=== PATIENT | female | born 1945 | race Caucasian/White ===

== ENCOUNTER 2016-05-31 07:30 | Inpatient (IN) | payer MEDICARE, OTHER ==
--- NOTE | 2016-06-28 03:55 | HP ---
HISTORY AND PHYSICAL: DATE OF ADMISSION/SURGERY: 07/05/16 DATE OF OFFICE VISIT: 06/25/16 ATTENDING SURGEON: Anam Diaz MD PROCEDURE: Right total knee arthroplasty. CHIEF COMPLAINT: Preop for right total knee arthroplasty. HISTORY OF PRESENT ILLNESS: Daisy Velez is a 70-year-old female who presents with a history of right knee pain. The patient states that the pain is now quite a bit worse and that medications are no longer working for her. The patient has failed conservative treatment and has elected for a right total knee arthroplasty. The benefits and possible risks were discussed with the patient and the consent was signed. PAST MEDICAL HISTORY: 1. Atrial fibrillation. 2. DVT/pulmonary embolism. 3. Hypertension. 4. Sleep apnea. 5. Obesity. 6. Hypothyroidism. 7. Asthma exertional. PAST SURGICAL HISTORY: 1. Knee replacement surgery of the left, complications of which were a pulmonary embolism. 2. Appendectomy. 3. Knee arthroscopy bilaterally. MEDICATIONS: 1. Eliquis 5 mg 1 by mouth twice a day. 2. Sotalol 80 mg 1 tab by mouth twice a day. 3. Potassium chloride ER 10 mEq 1 tab by mouth every day. 4. Losartan potassium/hydrochlorothiazide 100-25 mg 1 p.o. daily. 5. Levoxyl 175 mcg 1 tablet p.o. daily. 6. Calcium 500 plus D3 1 tablet daily. 7. Biotin OTC 10,000 mcg 1 tablet. 8. Tylenol p.r.n. 9. Levocetirizine dihydrochloride 5 mg by mouth every day. 10. Benadryl as needed. ALLERGIES: PENICILLIN and TALCUM POWDER. FAMILY MEDICAL HISTORY: Positive family history of cancer, no heart trouble, no diabetes. SOCIAL HISTORY: The patient is , resides in [place]. Denies any smoking, denies any illicit drug use, and states that she rarely consumes alcohol. REVIEW OF SYSTEMS: General: The patient denies any fevers, chills or night sweats. No known anesthesia problems. Integument: The patient denies any abrasions, lesions or open wounds. Cardiothoracic: The patient admits to palpitations. The patient denies any chest pain, edema. Pulmonary: The patient denies any shortness of breath with exertion, chronic cough. GI: The patient admits to constipation. The patient denies nausea, vomiting, diarrhea or GERD. : The patient admits to a little bit of urinary leakage. Denies any frequency, urgency or nocturia. MSK: The patient admits to right knee pain. The patient denies any troubles with acute or intermittent back pain. No history of fractures or any recent fractures. Skin: The patient denies any rashes or skin issues. Neurological: The patient denies any history of seizures, strokes, or epilepsy. Endocrine: The patient admits to hypothyroidism. The patient denies any history of diabetes. Hematologic: The patient admits to a history of pulmonary embolism, reports no troubles with easy bleeding or bruising. PHYSICAL EXAMINATION GENERAL: The patient is a mature heavy-set female in no apparent distress sitting on the exam table. PULMONARY: Lungs are clear to auscultation bilaterally with no wheezes, rales, or rhonchi. CARDIO: Regular rate and rhythm. S1 and S2. No audible S3 or S4. No murmurs , rubs or gallops. No edema. ABDOMEN: Has normoactive bowel sounds in all 4 quadrants. Soft and nontender in all 4 quadrants upon palpation. MUSCULOSKELETAL: Right knee, skin over the knee is intact. Good motion of the knee when she comes out to just about full extension and can flex to about 105 to 100 degrees. She has a slight varus and valgus play, but no instability. Palpation reveals a mild amount of soreness over the medial joint line and lateral joint lines. Patellar grind test is positive. Dragan and Lorraine maneuvers are negative. NEUROLOGIC: Alert and oriented x3. Cranial nerves II through XII are grossly intact. Sensation is intact to light touch. DIAGNOSTIC STUDIES/LABORATORY DATA: Studies: X-ray of the knee is up-to-date and was available for review. ASSESSMENT: Preop for right total knee replacement. PLAN: She is scheduled to undergo a right total knee arthroplasty. She will return to the office 10 to 14 days postop for the followup and suture removal. The patient states that she is on Eliquis 5 mg. She will stop it 4 days preop. The risks and benefits of the surgery were discussed with her, and informed consent was obtained. IVAN NARANJO [id number]/[facility] #: [id number]
[2016-07-05] MEDS ORDERED: NS 0.9% 1000 ML* 1,000 ML IV SCH (06:00)
[2016-07-05] MEDS ORDERED: Buffered Lidocaine 1% SYR 3ML* 3 ML/SYR SYRINGE INTRADERM ONE (06:00)
[2016-07-05] MEDS ORDERED: Clindamycin 900 MG IVPREMIX(* 900 MG/50 ML SDV IV ONE (06:13)
[2016-07-05] MEDS ORDERED: Buffered Lidocaine 1% SYR 3ML* 3 ML/SYR SYRINGE ONE (06:13)
[2016-07-05] MEDS ORDERED: Bupivacaine 0.25% EPI 200,000* 30 ML SDV ONE (07:12)
[2016-07-05] MEDS ORDERED: Midazolam* 1 MG/ML 2 ML VIAL (2 MG) ONE ×2 (07:18→07:38)
[2016-07-05] MEDS ORDERED: fentaNYL* 50 MCG/ML 2 ML VIAL (100 MCG VIAL) ONE (07:18)
[2016-07-05] MEDS ORDERED: Morphine PF AMP (0.5MG/ML)* 5 MG/10 ML AMP ONE (07:37)
[2016-07-05] MEDS ORDERED: Propofol* 10 MG/ML 20 ML BTL IV PUSH ONE (08:01)
[2016-07-05] MEDS ORDERED: Famotidine IV* 10 MG/ML 2 ML (20 mg) ONE (08:01)
[2016-07-05] MEDS ORDERED: Lidocaine 2% MPF* 2 ML VIAL ONE (08:01)
[2016-07-05] MEDS ORDERED: Dexamethasone IV* 4 MG/ML 1 ML (4 MG) ONE (08:01)
[2016-07-05] MEDS ORDERED: diPHENhydraMINE IV* 50 MG/ML 1 ml VIAL (BENADRYL) ONE (08:02)
[2016-07-05] MEDS ORDERED: Ondansetron INJ* 2 MG/ML VIAL IV PRN ×2 (08:47→08:49)
[2016-07-05] MEDS ORDERED: fentaNYL* 50 MCG/ML 2 ML VIAL (100 MCG VIAL) IV PRN (08:47)
[2016-07-05] MEDS ORDERED: PROCHLORPERAZINE INJ 5 MG/ML 2 ML VIAL IV PRN (08:47)
[2016-07-05] MEDS ORDERED: HYDROmorphone INJ* 1 MG/ML CARPUJECT SYRINGE IV PRN (08:47)
[2016-07-05] MEDS ORDERED: oxyCODONE/Acetamin 5/325 MG* TAB PO PRN (08:49)
[2016-07-05] MEDS ORDERED: oxyCODONE TAB* 5 MG TAB PO PRN (08:49)
[2016-07-05] MEDS ORDERED: diPHENhydraMINE IV* 50 MG/ML 1 ml VIAL (BENADRYL) IV PRN ×2 (08:49→10:29)
[2016-07-05] MEDS ORDERED: Metoclopramide IV* 5 MG/ML 2 ML VIAL IV PRN (08:49)
[2016-07-05] MEDS ORDERED: DiMENhydriNATE IV* 50 MG/ML VIAL IV PUSH PRN (08:49)
[2016-07-05] MEDS ORDERED: Naloxone* 0.4 MG/ML 1 ML VIAL IV PRN (08:49)
[2016-07-05] MEDS ORDERED: Scopolamine 1.5 mg* PATCH TRANSDERM PRN (09:00)
[2016-07-05] MEDS ORDERED: Bisacodyl SUPP* 10 MG SUPP PR PRN (10:29)
[2016-07-05] MEDS ORDERED: Polyethylene Glycol 3350* 17 GM PACKET PO PRN (10:29)
--- NOTE | 2016-07-05 11:43 | RAD ---
INDICATION: Status post total right knee replacement surgery. COMPARISON: Comparison is made with a prior x-ray study of the right knee from March 31, 2016. TECHNIQUE: 2 views of the right knee were obtained. FINDINGS: The patient is status post total right knee replacement surgery. The bones and prostheses are in normal alignment. There is no evidence for loosening. There is a small amount of air within the soft tissues consistent with the patient's recent surgery. There are several surgical tyron present anterior. IMPRESSION: STATUS POST TOTAL RIGHT KNEE REPLACEMENT SURGERY.
[2016-07-05] MEDS ORDERED: Bupivacaine 0.5% SDV PF* 30 ML VIAL ONE (12:19)
[2016-07-05] MEDS ORDERED: Albuterol 2.5 MG/3 ML NEB.SOL* (0.083%) INH PRN (12:53)
[2016-07-05 13:45] LABS: BUN/Creatinine Ratio 23.2 (8-20); Calcium 8.7 mg/dL (8.6-10.3); EGFR African American 107.6 (>60); EGFR Non-African American 83.6 (>60)
[2016-07-05 13:49] LABS: Potassium 4.6 mmol/L (3.5-5.0)
[2016-07-05] MEDS: Acetaminophen TAB* 325 MG PO SCH ×4 (14:33→20:45)
--- NOTE | 2016-07-05 15:32 | CONS ---
CONSULTATION REPORT: DATE OF CONSULT: 07/05/16 REQUESTING PHYSICIAN FOR CONSULT: Dr. Anam Diaz. MY ATTENDING PHYSICIAN WHILE IN THE HOSPITAL: Dr. Eran Helton (report being dictated by Yonatan Griffith NP). REASON FOR MEDICAL CONSULT: Medical management of comorbid medical condition. HISTORY OF PRESENT ILLNESS: I refer you to Dr. Diaz's H and P for further details. In short, Ms. Velez is a 70-year-old female patient. She has a history of osteoarthritis. She has had her left knee replaced several years ago and now she has been complaining of having right knee pain, failing conservative therapy, it has been affecting her activities of daily living. Medications are no longer working for her to control her pain. It was felt by the patient and Dr. Diaz that she would benefit from a right total knee arthroplasty. She sought care with Dr. Diaz and scheduled for the procedure for today. The patient has a medical history of DVT/PE postoperatively from her last knee replacement; she has history of atrial fibrillation, she sees Dr. Jimenez for this; history of hypertension; sleep apnea, although does not wear a mask; history of obesity; hypothyroidism; asthma, that she takes Flovent p.r.n., but she says she does not take this anymore at all as her breathing has been quite stable. Because of these medical complexities, the hospitalist service was asked to evaluate in consult. She was evaluated in the postoperative care unit. She, right now, says she feels a little dizzy, little lightheaded, but does not feel like she is going to pass out. She denies having any chest pain or any shortness of breath. It is noted that her heart rate is 44, her preop heart rate was 51 on EKG. She denies any having any nausea. Denies having any abdominal discomfort. Says her knee pain is well controlled. She denies feeling short of breath. She says her only complaint is that she feels a little lightheaded and little dizzy, but does not feel like she is going to pass out. PAST MEDICAL HISTORY: Significant for: 1. Atrial fibrillation. 2. History of DVT/PE that was provoked by knee surgery. 3. Obstructive sleep apnea. 4. Obesity. 5. Asthma that is exertional. 6. Hyperlipidemia. 7. Arthritis. 8. Hypothyroidism. PAST SURGICAL HISTORY: She has had: 1. Left knee replacement. 2. Appendectomy. 3. Knee arthroscopy bilaterally. MEDICATIONS: Home meds according to the list that was obtained preoperatively include: 1. Stool softener 2 capsules p.o. daily as needed. 2. Betapace 80 mg p.o. b.i.d. 3. Potassium 10 mEq p.o. daily. 4. Miconazole 1 application topically daily. 5. Losartan/hydrochlorothiazide 1 tablet p.o. daily. 6. Levoxyl 175 mcg daily. 7. Levocetirizine 5 mg daily. 8. Flovent 1 puff inhaled b.i.d. as needed. 9. Benadryl 25 mg at bedtime as needed. 10. B12 1000 mcg p.o. daily. 11. Calcium with vitamin D 1 tablet p.o. at bedtime. 12. Biotin 10,000 mcg p.o. daily. 13. Eliquis 5 mg p.o. b.i.d. 14. Tylenol 1 to 3 tabs every 6 hours as needed. ALLERGIES TO MEDICATIONS: Include PENICILLIN. FAMILY HISTORY: Reviewed and noncontributory. SOCIAL HISTORY: The patient denies ever smoking, rarely drinks alcohol. REVIEW OF SYSTEMS: There is no documented fever. She denies any weight changes. No blurry vision. No ear discharge, no rhinorrhea. No sore throat, no thyroid enlargement. There is no chest pain, no shortness of breath. No orthopnea, no nocturnal dyspnea. There is no abdominal pain. No nausea, no vomiting. No dysuria, no frequency. No loss of consciousness. No pruritus, no skin ulceration. Review of 14 systems completed, all others negative. PHYSICAL EXAM: Vital Signs: Reveal blood pressure 116/65, pulse 45, respirations 18, O2 sat 98%, temperature 96.8. General: At this time, Ms. Velez is a 70-year- old female patient sitting in the PACU stretcher. She does not appear to be in any acute distress. She is awake and she is alert. HEENT: Head, atraumatic, normocephalic. Eyes: Sclerae were anicteric and not pale. Neck was supple. Throat: Oral mucosa appears to be moist. No oropharyngeal erythema. Heart: Sounds S1, S2. She is bradycardic, rate around 50. There are no murmurs, rubs, or gallops. Heart rate is otherwise regular, but slow. Lungs: Clear to auscultation bilaterally. No wheezes, rales, or rhonchi. Abdomen: Soft, nontender. Bowel sounds hypoactive. Extremities: Pulses were 2+ throughout. Distal CSM checks were intact of the left lower extremity. Neurologically, she is awake, alert, and oriented x3. Speech is clear. She had no gross focal deficits. Skin: Intact except that she has got incision to her right knee which is covered with a dressing and is clean, dry, and intact. Her distal CSM checks to the right knee are intact, and to the left lower extremity and to the right lower extremity, distal CSM checks are intact. DIAGNOSTIC STUDIES/LAB DATA: Preop revealed WBC 11.4, RBC of 4.76, hemoglobin 14.6, hematocrit of 44, INR was 0.99. Sodium 141, potassium 3.9, chloride 106 , bicarb 29, BUN 19, creatinine of 0.82. Urine preop showed 1+ leukocyte esterase, 1+ wbc, 1+ bacteria. Urine culture grew out strep group B and normal golden. She has no urinary symptoms. She had a preoperative EKG which showed a sinus bradycardia with a resting heart rate of 51. Preoperative chest x-ray as well which showed findings suggestive of COPD, no acute findings. Old medical records were reviewed. ASSESSMENT AND PLAN: Ms. Velez is a 70-year-old female patient presenting to the orthopedic services today for a elective right total knee replacement. Hospitalist service was asked to evaluate in consult for medical management. Recommendations at this point are: 1. Right total knee replacement. I will defer the management to Dr. Diaz and his team. 2. History of deep venous thrombosis/pulmonary embolism. I did touch base with Dr. Thakkar and Dr. Diaz. We are going to give her a full dose of Lovenox tomorrow around 2 o'clock and then start her on Eliquis on Tuesday in the morning 5 mg b.i.d. for the time being and then I will continue this in the postoperative setting as well and she will be on this life-long because of a history of atrial fibrillation. 3. Bradycardia, history of atrial fibrillation. She is having some dizziness, feeling lightheaded. I think at this point that I would like to transfer her to the ICU just for monitoring. It is probably anesthesia related. Her heart rate preoperatively was 51. I would like to continue her sotalol, but I do not want her to go in atrial fibrillation with rapid ventricular response. She is in sinus now with first-degree AV block. I am going to go ahead and give her 40 mg dose tonight, half dose. I did touch base with Cardiology on-call, they recommended giving 40 tonight and then continuing her full dose starting tomorrow and we will continue to monitor her. Should she have no event overnight and she remains stable, we can consider putting her back on the surgical floor tomorrow morning, but I think overnight observation is prudent. I am also going to check her BMP, check her magnesium, we will check her TSH and CBC just to make sure that there are no issues with electrolytes or H and H causing this lightheadedness. I did check an EKG in the PACU which shows a sinus bradycardia at a rate of 44 and non-ST elevation or T-wave inversion, but did have a first-degree block. 4. Hypothyroidism. Continue her Synthroid. We are checking her TSH. 5. History of asthma. I did order a p.r.n. albuterol should she have any wheezing or shortness of breath. 6. Obstructive sleep apnea. She is not wearing a mask. I would recommend at least 24 hours of continuous pulse oximetry in the setting of her not wearing the CPAP. 7. Hypertension. Blood pressure is in the one teens. I am going to go ahead and hold her losartan/hydrochlorothiazide. We can start this slowly. 8. DVT prophylaxis. Again, full-dose Lovenox tomorrow for one time dose and then we will put her back on her Eliquis b.i.d. 9. Code status. Full code. 10. Fluids, electrolytes, and nutrition. I would recommend a heart-healthy diet. TIME SPENT: Time spent on the consult was 60 minutes, greater than half the time spent [id number] with the patient obtaining my history and physical, the other half time was spent going over the plan of care with the patient and implementing plan of care. I did discuss the plan of care with my attending, Dr. Helton; he is in agreement. YONATAN GRIFFITH NP CC: Dr. Anam Diaz* [id number]/[facility] #: [id number] NELLY
--- NOTE | 2016-07-05 15:56 | OP ---
DATE OF OPERATION: 07/05/16 - ROOM #340 DATE OF : 41 SURGEON: Anam Diaz MD TOBACCO SAMPLER: Raven Graf RPA ANESTHESIOLOGIST: Joe Angel MD ANESTHESIA: Spinal and sedation. PRE-OP DIAGNOSIS: Osteoarthritis, right knee. POST-OP DIAGNOSIS: Osteoarthritis, right knee. OPERATIVE PROCEDURE: Right total knee arthroplasty. INDICATIONS: Ms. Velez is a 70-year-old female who is having a long history of troubles with her right knee. She has [id number] with significant osteoarthritic changes throughout the knee. I discussed with her that a total knee arthroplasty should work well to decrease her pain and improve her function. Risks of surgery such as infection, scar formation, stiffness, DVT, pulmonary embolism, hardware failure, and continued pain were some of the risks discussed. She had been declared medically optimized and wished to proceed. ESTIMATED BLOOD LOSS: Less than 50 cc. COMPLICATIONS: None. HARDWARE: Julio Cesar Persona #9 femur, G tibia, 12-mm polyethylene spacer, 35-mm all- polyethylene patellar button. DESCRIPTION OF PROCEDURE: The patient was brought to the OR and spinal anesthesia was introduced. Martinez catheter was placed. Tourniquet was placed over the proximal right thigh and was used during the case. Total tourniquet time would be approximately 75 minutes. Right knee was prepped and then draped. Esmarch was used to exsanguinate the leg and the tourniquet was raised. Midline incision was made beginning about 10 cm above where I could just about palpate the patella and carried down to the medial side of the tibial tubercle. Incision was carried down through the fat and the small bleeders encountered were ligated using electrocautery. Extensor mechanism was exposed and a sharp parapatellar arthrotomy was made. Quite a bit of clear yellowish joint fluid was encountered. Fat pad was sharply excised and the soft tissues were sharply elevated from the medial side of the tibia. Patella measured 26 mm in thickness and a nice 9-mm cut was taken. Rongeur was used to take down some of the bone spurs, especially at the superior to lateral position. Patella was then easily subluxated laterally. The knee was flexed up. Nice exposure of the distal femur was obtained. Step drill was used to open the femoral canal. Intramedullary guide was placed. Guide was then adjusted until appeared parallel with the epicondyles and posterior condyles, then it was pinned into place. Distal femoral cutting guide was then pinned into place and the intramedullary guide was removed. She had been set at 4 degrees as I thought this would work well as I wanted to take take very little from the lateral side. Unfortunately, so little was taken that I had not even fully cut through the notch, so an additional 2 mm was then cut. Better cuts appeared to have been obtained. Femur was sized right at a 9. Holes were drilled and the cutting block was placed. Unfortunately, it seemed that I would notch the superior cortex, so this was moved up 2 mm until after doing this 3 times, the drill came out right on the top side of the cortex and then it appeared I would not notch the femur. Anterior and posterior femoral cuts followed by the chamfer cut were made. Attention was turned to the tibia. Step drills were used to open the tibial canal and intramedullary guide was placed. Outrigger was assembled and adjusted until it appeared it would take 2 mm from the very worn medial side. Cutting guide was then pinned into place and the proximal tibial cut was taken. Nice cut was obtained. It appeared that the cut was at 90 degrees to the shaft of the tibia, but with the knee brought out in the full extension, there was some wobble based on the femoral side. I needed to take a few more millimeters from the medial femoral condyle and that cut was taken. Chamfer cuts were then re-cut using a cutting block and now she came out nicely with just a tiniest bit of wobble, so that she was not too tight and she still flexed very nicely. Proximal tibia was sized and a G sat very nicely. Pins were placed and the proximal tibia was drilled and then punched. Attention was returned to the femur. Femoral trial was then placed and adjusted until sat nicely and the femoral notch cut was then finished. Peg holes were also drilled. Trial 12 was placed and she came out nicely into full extension and was nice and stable and she flexed nicely back to 135 degrees being limited by her body habitus. Patellar tracking was alright, but not spectacular as she would track down and then sublux laterally. Patella was sized and a 35 sat very nicely. Holes were drilled and trial was placed. This helped where she did not always snap over, but it could be felt where there was a very specific band laterally. She sat quite lateral preoperatively and this could be seen on the x-rays as well as on exam. That band was pie-crusted as was a little bit of a second band, a little more inferiorly. This worked well so that now the patella would track perfectly and did not want to jump laterally. Trial instrumentation was removed. Knee was copiously pulse lavaged. Cement was being prepared. Tibia followed by femur and patella were all cemented into place. Excess cement was removed and the cement was allowed to harden. Knee was then searched for additional cement and copiously pulse lavaged. Several small pieces were found. She was again trialed with a 12 and had the same wonderful motion and stability. A 12 polyethylene was then snapped into place. Parapatellar arthrotomy was then repaired using interrupted #1 Vicryl sutures. Tourniquet was let down and a small pumper was found and addressed using electro-cautery. Subcutaneous tissues were reapproximated in layers using 2-0 Vicryl's. Skin was closed using tyron. Sterile dressing was applied. She had brought her Cryo/Cuff from her previous left total knee and this was waiting for and would be applied in the recovery room. She was then awake and stable on transfer to the recovery room. [id number]/[facility] #: [id number] NELLY
[2016-07-05] MEDS: Clindamycin 600 MG IVPREMIX(* 600 MG/50 ML SDV IV SCH ×2 (16:25→23:33)
[2016-07-05] MEDS: D5W 1/2 NS 1000 ML BAG* 1,000 ML IV SCH (19:50)
[2016-07-05] MEDS: Docusate CAP* 100 MG PO SCH (20:45)
[2016-07-05] MEDS: Magnesium Hydroxide LIQ* 30 ML UDC PO SCH (20:46)
[2016-07-05] MEDS ORDERED: Sotalol TAB* 80 MG PO ONE (21:00)
[2016-07-05] MEDS ORDERED: Sotalol TAB* 80 MG PO SCH ×3 (21:00)
[2016-07-06] MEDS ORDERED: Ondansetron TAB* 4 MG PO PRN
[2016-07-06] MEDS ORDERED: Acetaminophen TAB* 325 MG PO PRN
[2016-07-06] MEDS ORDERED: Scopolamine PATCH Remove* 1 NOTE MISC PATCH OFF ONE
[2016-07-06] MEDS ORDERED: Ondansetron INJ* 2 MG/ML VIAL IV PRN
[2016-07-06] MEDS ORDERED: diPHENhydraMINE IV* 50 MG/ML 1 ml VIAL (BENADRYL) IV PRN
[2016-07-06] MEDS: NS 0.9% 250 ML* 250 ML IV ONE (04:18)
[2016-07-06] MEDS: oxyCODONE/Acetamin 5/325 MG* TAB PO PRN ×3 (04:25→19:14)
[2016-07-06] MEDS: Levothyroxine TAB* 100 MCG TAB PO SCH (05:39)
[2016-07-06] MEDS: Levothyroxine TAB* 75 MCG TAB PO SCH (05:39)
[2016-07-06 06:08] LABS: Hematocrit 33 % (35-47); Hemoglobin 10.8 g/dl (12.0-16.0)
[2016-07-06 06:31] LABS: BUN/Creatinine Ratio 23.6 (8-20); Calcium 8.3 mg/dL (8.6-10.3); EGFR African American 80.2 (>60); EGFR Non-African American 62.3 (>60)
[2016-07-06] MEDS: D5W 1/2 NS 1000 ML BAG* 1,000 ML IV SCH (06:34)
[2016-07-06 06:51] LABS: Potassium 4.7 mmol/L (3.5-5.0)
[2016-07-06] MEDS: Magnesium Hydroxide LIQ* 30 ML UDC PO SCH ×2 (08:34→20:26)
[2016-07-06] MEDS: Docusate CAP* 100 MG PO SCH ×2 (08:34→20:27)
[2016-07-06] MEDS: Vitamin THERAPEUTIC TAB PO SCH (08:34)
[2016-07-06] MEDS: Clindamycin 600 MG IVPREMIX(* 600 MG/50 ML SDV IV SCH (08:34)
[2016-07-06] MEDS: Potassium Chlor TAB* 10 MEQ TAB.ER PO SCH (08:34)
[2016-07-06] MEDS: Cetirizine* 10 MG TAB PO SCH (08:34)
--- NOTE | 2016-07-06 08:43 | PN ---
Progress Note - Progress Note SOAP: Subjective: pt resting comfortably with no complaints Objective: Vital Signs Temp Pulse Resp BP Pulse Ox 97.3 F 49 16 92/40 99 07/06/16 07:50 07/06/16 08:00 07/06/16 08:00 07/06/16 08:00 07/06/16 08:00 Laboratory Last Values Hgb 10.8 g/dl (12.0-16.0) L 07/06/16 05:40 Hct 33 % (35-47) L 07/06/16 05:40 INR (Anticoag Therapy) 0.99 (0.89-1.11) 07/05/16 07:00 Sodium 137 mmol/L (133-145) 07/06/16 05:40 Potassium 4.7 mmol/L (3.5-5.0) 07/06/16 05:40 Chloride 107 mmol/L (101-111) 07/06/16 05:40 Carbon Dioxide 26 mmol/L (22-32) 07/06/16 05:40 Anion Gap 4 mmol/L (2-11) 07/06/16 05:40 BUN 21 mg/dL (6-24) 07/06/16 05:40 Creatinine 0.89 mg/dL (0.51-0.95) 07/06/16 05:40 Est GFR ( Amer) 80.2 (>60) 07/06/16 05:40 Est GFR (Non-Af Amer) 62.3 (>60) 07/06/16 05:40 BUN/Creatinine Ratio 23.6 (8-20) H 07/06/16 05:40 Glucose 127 mg/dL (70-100) H 07/06/16 05:40 Calcium 8.3 mg/dL (8.6-10.3) L 07/06/16 05:40 Magnesium 2.0 mg/dL (1.9-2.7) 07/05/16 13:15 TSH 2.43 mcIU/mL (0.34-5.60) 07/05/16 17:55 incision: c/d/i PE: NVI Assessment: s/p right TKA Plan: 1) continue Clindamycin for 24 hours post-op 2) continue Lovenox/ SCD's for DVT prophylaxis 3) Continue PT/OT
[2016-07-06] MEDS ORDERED: LEVOXYL 175 MCG PO SCH (09:00)
[2016-07-06] MEDS ORDERED: Sotalol TAB* 80 MG PO SCH (09:00)
[2016-07-06 09:50] LABS: Add Diff/Slide Review? Manual Diff Added; Mean Corpuscular HGB Conc 33 g/dl (31-36); Mean Corpuscular Hemoglobin 30 pg (27-31); Mean Corpuscular Volume 91 fL (80-97); Mean Platelet Volume 10 um3 (7.4-10.4); Red Blood Count 3.61 10^6/ul (4.0-5.4); Red Cell Distribution Width 14 % (10.5-15); White Blood Count 13.6 10^3/ul (3.5-10.8)
[2016-07-06 10:23] LABS: Immature Granulocytes 1 % (0-9); Neutrophil % 80 % (38-83)
[2016-07-06 10:25] LABS: RBC Morphology Normal (Normal)
--- NOTE | 2016-07-06 11:07 | PN ---
Subjective Date of Service: 07/06/16 Interval History: Patient seen and examined at bedside. Pt states that she is feeling well and her pain is controlled. Denies fever, chills, lightheadedness, dizziness, shortness of breath, chest discomfort, N/V/D. Pt has been able to get up to a chair with PT. Tele: Sinus tonny with 1st degree heart block, rate 40-50's. Family History: Unchanged from Admission Social History: Unchanged from Admission Past Medical History: Unchanged from Admission Objective Active Medications: Acetaminophen (Tylenol Tab*) 650 mg PO Q4H PRN Reason: pain, fever Albuterol (Ventolin 2.5 Mg/3 Ml Neb.Grace*) 2.5 mg INH Q2H PRN Reason: SOB/ WHEEZING Apixaban (Eliquis*) 5 mg PO BID [facility] Bisacodyl (Dulcolax Supp*) 10 mg [place] DAILY PRN Reason: constipation Cetirizine HCl (Zyrtec*) 10 mg PO DAILY [facility] Diphenhydramine HCl (Benadryl Iv*) 12.5 mg IV Q6H PRN Reason: PRURITIS Docusate Sodium (Colace Cap*) 100 mg PO BID [facility] Enoxaparin Sodium (Lovenox(*)) 140 mg SUBCUT ONCE ONE Stop: 07/06/16 14:01 Lactulose (Lactulose*) 30 ml PO Q6H PRN Reason: constipation Levothyroxine Sodium (Synthroid Tab*) 100 mcg PO DAILY@0600 [facility] Levothyroxine Sodium (Synthroid Tab*) 75 mcg PO DAILY@0600 [facility] Magnesium Hydroxide (Milk Of Magnesia Liq*) 30 ml PO BID [facility] Morphine Sulfate (Morphine Inj (Syringe)*) 5 mg IV Q2H PRN Reason: PAIN - BREAKTHROUGH Multivitamins (Theragran Tab*) 1 tab PO DAILY [facility] Ondansetron HCl (Zofran Inj*) 4 mg IV Q6H PRN Reason: nausea Ondansetron HCl (Zofran Tab*) 4 mg PO Q6H PRN Reason: NAUSEA Oxycodone HCl (Roxycodone Tab*) 5 mg PO ONCE PRN Reason: Moderate Pain Stop: 23:59 Oxycodone HCl (Roxycodone Tab*) 10 mg PO Q4H PRN Reason: PAIN - SEVERE Oxycodone/Acetaminophen (Percocet 5/325 Tab*) 1 tab PO Q4H PRN Reason: PAIN - MILD Oxycodone/Acetaminophen (Percocet 5/325 Tab*) 2 tab PO Q4H PRN Reason: PAIN - MODERATE Polyethylene Glycol/Electrolytes (Miralax*) 17 gm PO DAILY PRN Reason: Constipation Potassium Chloride (Klor Con Er Tab*) 10 meq PO QAM [facility] Sotalol HCl (Betapace Tab*) 80 mg PO BID [facility] Vital Signs 07/05/16 07/05/16 07/05/16 11:15 11:30 11:45 Temperature Pulse Rate 43 45 43 Respiratory 12 16 14 Rate Blood Pressure 119/64 124/59 130/71 (mmHg) O2 Sat by Pulse 99 100 100 Oximetry 07/05/16 07/05/16 07/05/16 12:00 12:15 12:30 Temperature 96.8 F Pulse Rate 44 42 45 Respiratory 16 18 18 Rate Blood Pressure 115/59 117/66 116/65 (mmHg) O2 Sat by Pulse 95 98 98 Oximetry 07/05/16 07/05/16 07/05/16 12:45 13:00 13:15 Temperature Pulse Rate 44 44 44 Respiratory 18 16 16 Rate Blood Pressure 131/70 (mmHg) O2 Sat by Pulse 97 97 98 Oximetry 07/05/16 07/05/16 07/05/16 13:30 14:14 14:16 Temperature Pulse Rate 41 50 50 Respiratory 12 10 12 Rate Blood Pressure 131/70 128/56 (mmHg) O2 Sat by Pulse 95 76 92 Oximetry 07/05/16 07/05/16 07/05/16 14:24 14:30 14:34 Temperature 96.3 F Pulse Rate 47 44 Respiratory 11 12 12 Rate Blood Pressure 114/61 114/61 (mmHg) O2 Sat by Pulse 96 96 Oximetry 07/05/16 07/05/16 07/05/16 14:45 15:00 15:04 Temperature Pulse Rate 48 48 Respiratory 15 14 Rate Blood Pressure 123/49 (mmHg) O2 Sat by Pulse 97 98 97 Oximetry 07/05/16 07/05/16 07/05/16 15:30 15:38 16:00 Temperature 97.0 F Pulse Rate 46 45 Respiratory 15 11 Rate Blood Pressure 121/64 108/49 (mmHg) O2 Sat by Pulse 98 97 Oximetry 07/05/16 07/05/16 07/05/16 16:04 16:32 17:00 Temperature Pulse Rate 48 46 Respiratory 14 12 14 Rate Blood Pressure 116/89 (mmHg) O2 Sat by Pulse 97 99 Oximetry 07/05/16 07/05/16 07/05/16 17:42 18:00 19:00 Temperature Pulse Rate 45 45 Respiratory 15 19 17 Rate Blood Pressure 130/59 114/49 (mmHg) O2 Sat by Pulse 96 94 Oximetry 07/05/16 07/05/16 07/05/16 19:06 20:00 21:00 Temperature 97.3 F Pulse Rate 44 48 Respiratory 10 15 Rate Blood Pressure 109/47 106/34 (mmHg) O2 Sat by Pulse 99 95 Oximetry 07/05/16 07/05/16 07/05/16 22:00 22:03 23:00 Temperature Pulse Rate 50 47 45 Respiratory 10 10 9 Rate Blood Pressure 87/45 95/45 95/48 (mmHg) O2 Sat by Pulse 96 96 93 Oximetry 07/05/16 07/05/16 07/05/16 23:24 23:32 23:41 Temperature 97.0 F Pulse Rate 46 Respiratory 16 16 Rate Blood Pressure (mmHg) O2 Sat by Pulse 97 Oximetry 07/06/16 07/06/16 07/06/16 00:00 00:01 01:00 Temperature Pulse Rate 46 46 46 Respiratory 12 14 9 Rate Blood Pressure 99/41 101/38 (mmHg) O2 Sat by Pulse 96 95 95 Oximetry 07/06/16 07/06/16 07/06/16 02:00 02:02 03:00 Temperature Pulse Rate 46 46 49 Respiratory 9 8 11 Rate Blood Pressure 89/37 92/40 98/48 (mmHg) O2 Sat by Pulse 95 95 95 Oximetry 07/06/16 07/06/16 07/06/16 04:00 04:04 05:00 Temperature 97.8 F Pulse Rate 48 48 43 Respiratory 11 15 13 Rate Blood Pressure 88/46 98/45 90/43 (mmHg) O2 Sat by Pulse 98 100 97 Oximetry 07/06/16 07/06/16 07/06/16 06:00 07:00 07:50 Temperature 97.3 F Pulse Rate 50 48 Respiratory 15 13 Rate Blood Pressure 93/44 94/44 (mmHg) O2 Sat by Pulse 97 99 Oximetry 07/06/16 07/06/16 07/06/16 08:00 09:00 09:39 Temperature Pulse Rate 49 50 Respiratory 14 14 18 Rate Blood Pressure 92/40 96/39 121/68 (mmHg) O2 Sat by Pulse 98 98 Oximetry 07/06/16 07/06/16 09:50 10:00 Temperature Pulse Rate 53 Respiratory 14 18 Rate Blood Pressure (mmHg) O2 Sat by Pulse 92 Oximetry Oxygen Devices in Use Now: None Appearance: NAD, sitting up in a chair. Eyes: No Scleral Icterus, PERRLA Ears/Nose/Mouth/Throat: NL Teeth, Lips, Gums, Mucous Membranes Moist Neck: NL Appearance and Movements; NL JVP, Trachea Midline Respiratory: Symmetrical Chest Expansion and Respiratory Effort, Clear to Auscultation Cardiovascular: NL Sounds; No Murmurs; No JVD, RRR Abdominal: NL Sounds; No Tenderness; No Distention Extremities: No Edema Skin: No Rash or Ulcers, - - Dressing to right knee clean, dry and intact. Neurological: Alert and Oriented x 3, NL Muscle Strength and Tone Lines/Tubes/Other Access: Clean, Dry and Intact Peripheral IV - site benign Nutrition: Taking PO's Result Diagrams: 07/06/16 05:40 07/06/16 05:40 Microbiology and Other Data: Microbiology 07/05/16 15:00 Nasal Screen MRSA (PCR)(OVI) - Final Nasal Mrsa Negative Assess/Plan/Problems-Billing Assessment: Ms. Velez is a 70 yo female with PMH significant Afib, hx DVT/PE, PEGGY, obesity, HLD, hypothyroidism, asthma, and arthritis who presented to the hospital for am elective right total knee replacement with Dr. Diaz on 07/05/16. - Patient Problems (1) Status post total right knee replacement Code(s): Z96.651 - PRESENCE OF RIGHT ARTIFICIAL KNEE JOINT SNOMED Code(s): 2537880225665 Comment: POD #1. Management per Ortho. HH stable. Continue OT/PT, pain control and bowel regime. (2) Bradycardia Code(s): R00.1 - BRADYCARDIA, UNSPECIFIED SNOMED Code(s): 03503731 Comment: - HR improved to the 50's this AM. - Asymptomatic (3) Afib Code(s): I48.91 - UNSPECIFIED ATRIAL FIBRILLATION SNOMED Code(s): 06912291 Comment: - Sinus tonny on tele this AM - Continue Sotalol with hold parameters - Lovenox today and resume Eliquis in AM (4) History of DVT (deep vein thrombosis) Code(s): Z86.718 - PERSONAL HISTORY OF OTHER VENOUS THROMBOSIS AND EMBOLISM SNOMED Code(s): 417154575 Comment: - Hx PE and DVT - Will receive a full dose of Lovenox at 1400 today - Will resume Eliquis in the AM (5) Hypothyroidism Code(s): E03.9 - HYPOTHYROIDISM, UNSPECIFIED SNOMED Code(s): 12059610 Comment: - TSH 2.46 - Continue Levothyroxine (6) Asthma Code(s): J45.909 - UNSPECIFIED ASTHMA, UNCOMPLICATED SNOMED Code(s): 118616140 Comment: - Controlled - Albuterol PRN (7) PEGGY (obstructive sleep apnea) Code(s): G47.33 - OBSTRUCTIVE SLEEP APNEA (ADULT) (PEDIATRIC) SNOMED Code(s): 52522202 Comment: - Close monitoring (8) HTN (hypertension) Code(s): I10 - ESSENTIAL (PRIMARY) HYPERTENSION SNOMED Code(s): 74091372 Comment: - BP controlled, improving - Will consider restarting losartan in the AM - Continue to hold HCTZ (9) DVT prophylaxis Code(s): EGH5298 - SNOMED Code(s): 192568417 Comment: Lovenox to Eliquis (10) Full code status Code(s): Z78.9 - OTHER SPECIFIED HEALTH STATUS SNOMED Code(s): 750627554 Status and Disposition: Inpatient. Disposition per Ortho.
[2016-07-06] MEDS ORDERED: Heparin VIAL(*) 5000 UNITS/ML VIAL (FIVE THOUSAND) SUBCUT SCH (14:00)
[2016-07-06] MEDS ORDERED: Enoxaparin(*) 150 MG/ML 1 ML SYRINGE SUBCUT ONE (14:00)
[2016-07-06] MEDS: oxyCODONE TAB* 5 MG TAB PO PRN ×2 (14:26→22:55)
[2016-07-06] MEDS: Morphine INJ* 10 MG/ML 1 ML CARPUJECT IV PRN ×2 (16:06→22:58)
[2016-07-06] MEDS: Sotalol TAB* 80 MG PO SCH (20:27)
[2016-07-07] MEDS ORDERED: Metoprolol Tartrate IV* 1 MG/ML 5 ML VIAL IV ONE (00:23)
[2016-07-07] MEDS ORDERED: Metoprolol Tartrate IV* 1 MG/ML 5 ML VIAL ONE (00:25)
[2016-07-07] MEDS: oxyCODONE/Acetamin 5/325 MG* TAB PO PRN ×4 (04:21→21:17)
[2016-07-07] MEDS: Levothyroxine TAB* 75 MCG TAB PO SCH (04:21)
[2016-07-07] MEDS: Levothyroxine TAB* 100 MCG TAB PO SCH (04:21)
[2016-07-07 08:03] LABS: Hematocrit 31 % (35-47)
[2016-07-07] MEDS: Potassium Chlor TAB* 10 MEQ TAB.ER PO SCH (08:45)
[2016-07-07] MEDS: Magnesium Hydroxide LIQ* 30 ML UDC PO SCH ×2 (08:45→21:13)
[2016-07-07] MEDS: Cetirizine* 10 MG TAB PO SCH (08:45)
[2016-07-07] MEDS: Sotalol TAB* 80 MG PO SCH ×2 (08:45→21:17)
[2016-07-07] MEDS: Vitamin THERAPEUTIC TAB PO SCH (08:45)
[2016-07-07] MEDS: Docusate CAP* 100 MG PO SCH ×2 (08:45→21:16)
--- NOTE | 2016-07-07 09:19 | PN ---
Subjective Date of Service: 07/07/16 Interval History: Patient seen and examined at bedside. She reports having some increased pain overnight but states, "I don't want to take too much pain medication." We discussed pain management in the postop period and the appropriate use of pain medication as ordered. She verbalized understanding/agreement. She denies CP, SOB, abd pain, n/v, fever/chills. She reports that she knows when she goes into atrial fib and denies any palpitations or concerns overnight. Family History: Unchanged from Admission Social History: Unchanged from Admission Past Medical History: Unchanged from Admission Objective Active Medications: Acetaminophen (Tylenol Tab*) 650 mg PO Q4H PRN PRN Reason: pain, fever Last Admin: 07/06/16 13:38 Dose: 650 mg Albuterol (Ventolin 2.5 Mg/3 Ml Neb.Grace*) 2.5 mg INH Q2H PRN PRN Reason: SOB/WHEEZING Apixaban (Eliquis*) 5 mg PO BID [facility] Bisacodyl (Dulcolax Supp*) 10 mg [place] DAILY PRN PRN Reason: constipation Cetirizine HCl (Zyrtec*) 10 mg PO DAILY [facility] Last Admin: 07/07/16 08:45 Dose: 10 mg Diphenhydramine HCl (Benadryl Iv*) 12.5 mg IV Q6H PRN PRN Reason: PRURITIS Docusate Sodium (Colace Cap*) 100 mg PO BID [facility] Last Admin: 07/07/16 08:45 Dose: Not Given Lactulose (Lactulose*) 30 ml PO Q6H PRN PRN Reason: constipation Levothyroxine Sodium (Synthroid Tab*) 100 mcg PO DAILY@0600 [facility] Last Admin: 07/07/16 04:21 Dose: 100 mcg Levothyroxine Sodium (Synthroid Tab*) 75 mcg PO DAILY@0600 [facility] Last Admin: 07/07/16 04:21 Dose: 75 mcg Magnesium Hydroxide (Milk Of Magnesia Liq*) 30 ml PO BID [facility] Last Admin: 07/07/16 08:45 Dose: Not Given Morphine Sulfate (Morphine Inj (Syringe)*) 5 mg IV Q2H PRN PRN Reason: PAIN - BREAKTHROUGH Last Admin: 07/06/16 22:58 Dose: 5 mg Multivitamins (Theragran Tab*) 1 tab PO DAILY [facility] Last Admin: 07/07/16 08:45 Dose: 1 tab Ondansetron HCl (Zofran Inj*) 4 mg IV Q6H PRN PRN Reason: nausea Ondansetron HCl (Zofran Tab*) 4 mg PO Q6H PRN PRN Reason: NAUSEA Oxycodone HCl (Roxycodone Tab*) 10 mg PO Q4H PRN PRN Reason: PAIN - SEVERE Last Admin: 07/06/16 22:55 Dose: 10 mg Oxycodone/Acetaminophen (Percocet 5/325 Tab*) 1 tab PO Q4H PRN PRN Reason: PAIN - MILD Oxycodone/Acetaminophen (Percocet 5/325 Tab*) 2 tab PO Q4H PRN PRN Reason: PAIN - MODERATE Last Admin: 07/07/16 04:21 Dose: 2 tab Polyethylene Glycol/Electrolytes (Miralax*) 17 gm PO DAILY PRN PRN Reason: Constipation Potassium Chloride (Klor Con Er Tab*) 10 meq PO QAM [facility] Last Admin: 07/07/16 08:45 Dose: 10 meq Sotalol HCl (Betapace Tab*) 80 mg PO BID [facility] Last Admin: 07/07/16 08:45 Dose: 80 mg Vital Signs 07/06/16 07/06/16 07/06/16 09:39 09:50 10:00 Temperature Pulse Rate 53 Respiratory 18 14 18 Rate Blood Pressure 121/68 (mmHg) O2 Sat by Pulse 92 Oximetry 07/06/16 07/06/16 07/06/16 11:00 11:16 12:00 Temperature 97.1 F Pulse Rate 52 50 49 Respiratory 14 14 14 Rate Blood Pressure 104/48 119/49 (mmHg) O2 Sat by Pulse 93 93 91 Oximetry 07/06/16 07/06/16 07/06/16 13:20 14:26 15:16 Temperature 98.1 F 98.1 F Pulse Rate 56 65 Respiratory 16 16 14 Rate Blood Pressure 134/59 123/59 (mmHg) O2 Sat by Pulse 93 91 Oximetry 07/06/16 07/06/16 07/06/16 16:06 17:06 19:14 Temperature Pulse Rate Respiratory 16 18 16 Rate Blood Pressure (mmHg) O2 Sat by Pulse Oximetry 07/06/16 07/06/16 07/06/16 19:20 19:32 20:31 Temperature 99.9 F Pulse Rate 73 80 Respiratory 16 18 Rate Blood Pressure 141/55 (mmHg) O2 Sat by Pulse 94 91 Oximetry 07/06/16 07/06/16 07/06/16 21:14 22:55 22:58 Temperature Pulse Rate Respiratory 16 18 18 Rate Blood Pressure (mmHg) O2 Sat by Pulse Oximetry 07/06/16 07/07/16 07/07/16 23:58 00:06 00:12 Temperature 98.2 F Pulse Rate 133 125 Respiratory 18 18 Rate Blood Pressure 107/59 131/49 (mmHg) O2 Sat by Pulse 93 93 Oximetry 07/07/16 07/07/16 07/07/16 00:38 00:49 03:53 Temperature 99.3 F Pulse Rate 89 119 Respiratory 16 20 20 Rate Blood Pressure 131/64 (mmHg) O2 Sat by Pulse 94 Oximetry 07/07/16 07/07/16 07/07/16 04:21 06:20 08:25 Temperature 98.2 F Pulse Rate 69 Respiratory 18 16 18 Rate Blood Pressure 115/49 (mmHg) O2 Sat by Pulse 94 Oximetry Oxygen Devices in Use Now: None Appearance: Female patient, lying in bed, in NAD Eyes: PERRLA Ears/Nose/Mouth/Throat: Clear Oropharnyx, Mucous Membranes Moist Neck: NL Appearance and Movements; NL JVP Respiratory: Symmetrical Chest Expansion and Respiratory Effort, Clear to Auscultation Cardiovascular: NL Sounds; No Murmurs; No JVD, RRR Abdominal: NL Sounds; No Tenderness; No Distention Extremities: No Clubbing, Cyanosis, - - dressing to right knee c/d/i, brisk cap refill to BLE, distal pulses 2+ Skin: No Rash or Ulcers Neurological: Alert and Oriented x 3 Lines/Tubes/Other Access: Clean, Dry and Intact Peripheral IV Nutrition: Taking PO's Result Diagrams: 07/07/16 07:33 07/06/16 05:40 Microbiology and Other Data: Microbiology 07/05/16 15:00 Nasal Screen MRSA (PCR)(OVI) - Final Nasal Mrsa Negative Assess/Plan/Problems-Billing Assessment: Ms. Velez is a 70 yo female with PMH significant Afib, hx DVT/PE, PEGGY, obesity, HLD, hypothyroidism, asthma, and arthritis who presented to the hospital for am elective right total knee replacement with Dr. Diaz on 07/05/16. - Patient Problems (1) Status post total right knee replacement Code(s): Z96.651 - PRESENCE OF RIGHT ARTIFICIAL KNEE JOINT Comment: POD #2. Management per Ortho. HH stable. Continue OT/PT, pain control and bowel regime. (2) Bradycardia Code(s): R00.1 - BRADYCARDIA, UNSPECIFIED Comment: HR ranging from 80s to 110s. Patient did require IV Lopressor yesterday for high HR. Thought to be secondary to pain; per nursing note, pt refusing pain medication for a period of time. (3) Afib Code(s): I48.91 - UNSPECIFIED ATRIAL FIBRILLATION Comment: Not an active issue. Patient is aware when she goes into afib. Continue Sotalol with hold parameters. Resume Eliquis. (4) History of DVT (deep vein thrombosis) Code(s): Z86.718 - PERSONAL HISTORY OF OTHER VENOUS THROMBOSIS AND EMBOLISM Comment: Hx PE and DVT Resume Eliquis today (5) Hypothyroidism Code(s): E03.9 - HYPOTHYROIDISM, UNSPECIFIED Comment: TSH 2.46, continue levothyroxine. (6) Asthma Comment: Controlled, albuterol PRN. (7) PEGGY (obstructive sleep apnea) Code(s): G47.33 - OBSTRUCTIVE SLEEP APNEA (ADULT) (PEDIATRIC) Comment: Close monitoring (8) HTN (hypertension) Code(s): I10 - ESSENTIAL (PRIMARY) HYPERTENSION Comment: SBP 100s-130s, restart losartan with hold parameters tomorrow. Continue to hold HCTZ. (9) DVT prophylaxis Code(s): DFP9582 - Comment: Eliquis (10) Full code status Code(s): Z78.9 - OTHER SPECIFIED HEALTH STATUS Status and Disposition: Inpatient. Disposition per Ortho.
[2016-07-07] MEDS: Apixaban* 5 MG TAB PO SCH ×2 (09:23→21:17)
[2016-07-08] MEDS: oxyCODONE/Acetamin 5/325 MG* TAB PO PRN ×6 (03:31→22:34)
[2016-07-08] MEDS: Levothyroxine TAB* 75 MCG TAB PO SCH (06:04)
[2016-07-08] MEDS: Levothyroxine TAB* 100 MCG TAB PO SCH (06:04)
[2016-07-08 06:14] LABS: Hematocrit 28 % (35-47); Hemoglobin 9.4 g/dl (12.0-16.0)
[2016-07-08] MEDS: Losartan TAB* 25 MG PO SCH (09:32)
[2016-07-08] MEDS: Potassium Chlor TAB* 10 MEQ TAB.ER PO SCH (09:33)
[2016-07-08] MEDS: Docusate CAP* 100 MG PO SCH ×2 (09:33→22:34)
[2016-07-08] MEDS ORDERED: Magnesium Hydroxide LIQ* 30 ML UDC PO PRN (09:33)
[2016-07-08] MEDS: Cetirizine* 10 MG TAB PO SCH (09:33)
[2016-07-08] MEDS: Sotalol TAB* 80 MG PO SCH ×2 (09:33→22:34)
[2016-07-08] MEDS: Vitamin THERAPEUTIC TAB PO SCH (09:33)
[2016-07-08] MEDS: Apixaban* 5 MG TAB PO SCH ×2 (09:39→22:34)
[2016-07-08] MEDS ORDERED: oxyCODONE/Acetamin 5/325 MG* TAB PO PRN (10:26)
[2016-07-08] MEDS: Magnesium Hydroxide LIQ* 30 ML UDC PO SCH (10:32)
--- NOTE | 2016-07-08 12:22 | PN ---
Progress Note - Progress Note SOAP: Subjective: [Pt is resting comfortably with no complaints. States that she is waiting on her application to [facility] for discharge. ] Objective: [General: Pt is alert, awake and oriented. No acute distress MSK: RLE: Pt is able to dorsiflex and planterflex. Able to wiggle toes. Pt has 2 + DP and PT pulses. Pt has sensation to light touch in lower extremity. Dressing was changed today. Incision is C/D/I ] Vital Signs Temp 98.2 F 07/08/16 07:44 Pulse 67 07/08/16 07:44 Resp 16 07/08/16 10:36 BP 122/54 07/08/16 07:44 Pulse Ox 99 07/08/16 07:44 Intake & Output 07/07/16 07/08/16 07/08/16 18:59 06:59 18:59 Intake Total 360 770 120 Output Total 350 250 Balance 10 520 120 Intake: Oral 360 770 120 Output: Urine 200 250 Martinez 150 Other: Estimated Void Medium Medium # Bowel Movements 5 Estimated Stool Amount Small # Voids 1 2 Assessment: [S/P RTKA ] Plan: [Continue PT/OT Continue current anticoagulation Continue current pain medications Pt is awaiting bed at [facility]. ]
--- NOTE | 2016-07-08 12:42 | PN ---
Subjective Date of Service: 07/08/16 Interval History: Patient seen and examined at bedside. She is OOB to chair and is reclined back. She denies fever/chills, CP, SOB, abd pain, n/v. She states her pain has been better controlled and reports participating with PT. Family History: Unchanged from Admission Social History: Unchanged from Admission Past Medical History: Unchanged from Admission Objective Active Medications: Acetaminophen (Tylenol Tab*) 650 mg PO Q4H PRN PRN Reason: pain, fever Last Admin: 07/06/16 13:38 Dose: 650 mg Albuterol (Ventolin 2.5 Mg/3 Ml Neb.Grace*) 2.5 mg INH Q2H PRN PRN Reason: SOB/WHEEZING Last Admin: 07/07/16 19:55 Dose: 2.5 mg Apixaban (Eliquis*) 5 mg PO BID [facility] Last Admin: 07/08/16 09:39 Dose: 5 mg Bisacodyl (Dulcolax Supp*) 10 mg [place] DAILY PRN PRN Reason: constipation Cetirizine HCl (Zyrtec*) 10 mg PO DAILY [facility] Last Admin: 07/08/16 09:33 Dose: 10 mg Diphenhydramine HCl (Benadryl Iv*) 12.5 mg IV Q6H PRN PRN Reason: PRURITIS Docusate Sodium (Colace Cap*) 100 mg PO BID [facility] Last Admin: 07/08/16 09:33 Dose: 100 mg Lactulose (Lactulose*) 30 ml PO Q6H PRN PRN Reason: constipation Levothyroxine Sodium (Synthroid Tab*) 100 mcg PO DAILY@0600 [facility] Last Admin: 07/08/16 06:04 Dose: 100 mcg Levothyroxine Sodium (Synthroid Tab*) 75 mcg PO DAILY@0600 [facility] Last Admin: 07/08/16 06:04 Dose: 75 mcg Losartan Potassium (Cozaar Tab*) 100 mg PO DAILY [facility] Last Admin: 07/08/16 09:32 Dose: 100 mg Magnesium Hydroxide (Milk Of Magnesia Liq*) 30 ml PO .SEE COMMENT PRN PRN Reason: NOT SPECIFIED Stop: 07/09/16 20:59 Morphine Sulfate (Morphine Inj (Syringe)*) 5 mg IV Q2H PRN PRN Reason: PAIN - BREAKTHROUGH Last Admin: 07/06/16 22:58 Dose: 5 mg Multivitamins (Theragran Tab*) 1 tab PO DAILY [facility] Last Admin: 07/08/16 09:33 Dose: 1 tab Ondansetron HCl (Zofran Inj*) 4 mg IV Q6H PRN PRN Reason: nausea Ondansetron HCl (Zofran Tab*) 4 mg PO Q6H PRN PRN Reason: NAUSEA Oxycodone HCl (Roxycodone Tab*) 10 mg PO Q4H PRN PRN Reason: PAIN - SEVERE Last Admin: 07/06/16 22:55 Dose: 10 mg Oxycodone/Acetaminophen (Percocet 5/325 Tab*) 2 tab PO Q3H PRN PRN Reason: PAIN - MODERATE Oxycodone/Acetaminophen (Percocet 5/325 Tab*) 1 tab PO Q3H PRN PRN Reason: PAIN - MILD Last Admin: 07/08/16 10:36 Dose: 1 tab Polyethylene Glycol/Electrolytes (Miralax*) 17 gm PO DAILY PRN PRN Reason: Constipation Potassium Chloride (Klor Con Er Tab*) 10 meq PO QAM [facility] Last Admin: 07/08/16 09:33 Dose: 10 meq Sotalol HCl (Betapace Tab*) 80 mg PO BID [facility] Last Admin: 07/08/16 09:33 Dose: 80 mg Vital Signs 07/07/16 07/07/16 07/07/16 14:20 15:39 16:20 Temperature 98.0 F Pulse Rate 67 Respiratory 18 16 18 Rate Blood Pressure 113/52 (mmHg) O2 Sat by Pulse 90 Oximetry 07/07/16 07/07/16 07/07/16 18:50 19:42 19:45 Temperature 98.6 F Pulse Rate 67 70 Respiratory 16 22 16 Rate Blood Pressure 129/66 (mmHg) O2 Sat by Pulse 98 100 Oximetry 07/07/16 07/07/16 07/07/16 19:56 21:17 23:17 Temperature 97.6 F Pulse Rate 69 Respiratory 16 16 20 Rate Blood Pressure (mmHg) O2 Sat by Pulse 98 Oximetry 07/07/16 07/08/16 07/08/16 23:38 03:23 03:31 Temperature 98.1 F 98.5 F Pulse Rate 65 65 Respiratory 16 18 18 Rate Blood Pressure 122/53 127/51 (mmHg) O2 Sat by Pulse 98 100 Oximetry 07/08/16 07/08/16 07/08/16 05:31 07:44 07:45 Temperature 98.2 F Pulse Rate 67 Respiratory 16 18 18 Rate Blood Pressure 122/54 (mmHg) O2 Sat by Pulse 99 Oximetry 07/08/16 07/08/16 07/08/16 09:30 09:45 10:36 Temperature Pulse Rate Respiratory 18 18 16 Rate Blood Pressure (mmHg) O2 Sat by Pulse Oximetry Oxygen Devices in Use Now: None Appearance: Female patient, OOB to chair, in NAD Eyes: PERRLA Ears/Nose/Mouth/Throat: Clear Oropharnyx, Mucous Membranes Moist Neck: NL Appearance and Movements; NL JVP Respiratory: Symmetrical Chest Expansion and Respiratory Effort, Clear to Auscultation Cardiovascular: NL Sounds; No Murmurs; No JVD, RRR Abdominal: NL Sounds; No Tenderness; No Distention Extremities: No Edema, - - dressing to R knee c/d/i, distal pulses 2+ Skin: No Rash or Ulcers Neurological: Alert and Oriented x 3 Lines/Tubes/Other Access: Clean, Dry and Intact Peripheral IV Nutrition: Taking PO's Result Diagrams: 07/08/16 05:53 07/06/16 05:40 Microbiology and Other Data: Microbiology 07/05/16 15:00 Nasal Screen MRSA (PCR)(OVI) - Final Nasal Mrsa Negative Assess/Plan/Problems-Billing Assessment: Ms. Velez is a 70 yo female with PMH significant Afib, hx DVT/PE, PEGGY, obesity, HLD, hypothyroidism, asthma, and arthritis who presented to the hospital for am elective right total knee replacement with Dr. Diaz on 07/05/16. - Patient Problems (1) Status post total right knee replacement Code(s): Z96.651 - PRESENCE OF RIGHT ARTIFICIAL KNEE JOINT Comment: POD #3. Management per Ortho. HH stable. Continue OT/PT, pain control and bowel regime. (2) Bradycardia Code(s): R00.1 - BRADYCARDIA, UNSPECIFIED Comment: Resolved, HR now 60s-70s Sotalol may contribute to lower heart rates, continue medication with hold parameters (3) Afib Code(s): I48.91 - UNSPECIFIED ATRIAL FIBRILLATION Comment: Not an active issue. Patient is aware when she goes into afib. Continue Sotalol with hold parameters. Resume Eliquis. (4) History of DVT (deep vein thrombosis) Code(s): Z86.718 - PERSONAL HISTORY OF OTHER VENOUS THROMBOSIS AND EMBOLISM Comment: Hx PE and DVT Continue Eliquis (5) Hypothyroidism Code(s): E03.9 - HYPOTHYROIDISM, UNSPECIFIED Comment: TSH 2.46, continue levothyroxine. (6) Asthma Comment: Controlled, albuterol PRN. (7) PEGGY (obstructive sleep apnea) Code(s): G47.33 - OBSTRUCTIVE SLEEP APNEA (ADULT) (PEDIATRIC) Comment: Close monitoring (8) HTN (hypertension) Code(s): I10 - ESSENTIAL (PRIMARY) HYPERTENSION Comment: Normotensive, continue losartan Continue to hold HCTZ. (9) DVT prophylaxis Code(s): HQA7775 - Comment: Eliquis (10) Full code status Code(s): Z78.9 - OTHER SPECIFIED HEALTH STATUS Status and Disposition: Inpatient. Disposition per Ortho.
[2016-07-09] MEDS: oxyCODONE/Acetamin 5/325 MG* TAB PO PRN ×2 (04:01→08:41)
[2016-07-09] MEDS: Levothyroxine TAB* 100 MCG TAB PO SCH (06:03)
[2016-07-09] MEDS: Levothyroxine TAB* 75 MCG TAB PO SCH (06:03)
[2016-07-09 08:24] VITALS: BP 113/60
[2016-07-09] MEDS: Potassium Chlor TAB* 10 MEQ TAB.ER PO SCH (08:40)
[2016-07-09] MEDS: Docusate CAP* 100 MG PO SCH (08:40)
[2016-07-09] MEDS: Losartan TAB* 25 MG PO SCH (08:41)
[2016-07-09] MEDS: Cetirizine* 10 MG TAB PO SCH (08:41)
[2016-07-09] MEDS: Sotalol TAB* 80 MG PO SCH (08:41)
[2016-07-09] MEDS: Vitamin THERAPEUTIC TAB PO SCH (08:41)
[2016-07-09] MEDS: Apixaban* 5 MG TAB PO SCH (08:42)
[2016-07-09 09:05] LABS: Hematocrit 27 % (35-47); Hemoglobin 9.1 g/dl (12.0-16.0)
[2016-07-09 09:08] LABS: Comments Flag Yes
--- NOTE | 2016-07-09 09:12 | PN ---
Subjective Date of Service: 07/09/16 Interval History: Patient seen and examined at bedside. She is OOB to chair and recently ambulated from the bathroom independently with walker. She reports feeling well and denies CP, SOB, abd pain, n/v. She reports adequate pain control. She did not realize she went into afib last evening. She reports she is being transferred to [place] today. Family History: Unchanged from Admission Social History: Unchanged from Admission Past Medical History: Unchanged from Admission Objective Active Medications: Acetaminophen (Tylenol Tab*) 650 mg PO Q4H PRN PRN Reason: pain, fever Last Admin: 07/06/16 13:38 Dose: 650 mg Albuterol (Ventolin 2.5 Mg/3 Ml Neb.Grace*) 2.5 mg INH Q2H PRN PRN Reason: SOB/WHEEZING Last Admin: 07/07/16 19:55 Dose: 2.5 mg Apixaban (Eliquis*) 5 mg PO BID [facility] Last Admin: 07/09/16 08:42 Dose: 5 mg Bisacodyl (Dulcolax Supp*) 10 mg [place] DAILY PRN PRN Reason: constipation Cetirizine HCl (Zyrtec*) 10 mg PO DAILY [facility] Last Admin: 07/09/16 08:41 Dose: 10 mg Diphenhydramine HCl (Benadryl Iv*) 12.5 mg IV Q6H PRN PRN Reason: PRURITIS Docusate Sodium (Colace Cap*) 100 mg PO BID [facility] Last Admin: 07/09/16 08:40 Dose: 100 mg Lactulose (Lactulose*) 30 ml PO Q6H PRN PRN Reason: constipation Levothyroxine Sodium (Synthroid Tab*) 100 mcg PO DAILY@0600 [facility] Last Admin: 07/09/16 06:03 Dose: 100 mcg Levothyroxine Sodium (Synthroid Tab*) 75 mcg PO DAILY@0600 [facility] Last Admin: 07/09/16 06:03 Dose: 75 mcg Losartan Potassium (Cozaar Tab*) 100 mg PO DAILY [facility] Last Admin: 07/09/16 08:41 Dose: 100 mg Magnesium Hydroxide (Milk Of Magnesia Liq*) 30 ml PO .SEE COMMENT PRN PRN Reason: NOT SPECIFIED Stop: 07/09/16 20:59 Morphine Sulfate (Morphine Inj (Syringe)*) 5 mg IV Q2H PRN PRN Reason: PAIN - BREAKTHROUGH Last Admin: 07/06/16 22:58 Dose: 5 mg Multivitamins (Theragran Tab*) 1 tab PO DAILY [facility] Last Admin: 07/09/16 08:41 Dose: 1 tab Ondansetron HCl (Zofran Inj*) 4 mg IV Q6H PRN PRN Reason: nausea Ondansetron HCl (Zofran Tab*) 4 mg PO Q6H PRN PRN Reason: NAUSEA Oxycodone HCl (Roxycodone Tab*) 10 mg PO Q4H PRN PRN Reason: PAIN - SEVERE Last Admin: 07/06/16 22:55 Dose: 10 mg Oxycodone/Acetaminophen (Percocet 5/325 Tab*) 2 tab PO Q3H PRN PRN Reason: PAIN - MODERATE Oxycodone/Acetaminophen (Percocet 5/325 Tab*) 1 tab PO Q3H PRN PRN Reason: PAIN - MILD Last Admin: 07/09/16 08:41 Dose: 1 tab Polyethylene Glycol/Electrolytes (Miralax*) 17 gm PO DAILY PRN PRN Reason: Constipation Potassium Chloride (Klor Con Er Tab*) 10 meq PO QAM [facility] Last Admin: 07/09/16 08:40 Dose: 10 meq Sotalol HCl (Betapace Tab*) 80 mg PO BID [facility] Last Admin: 07/09/16 08:41 Dose: 80 mg Vital Signs 07/08/16 07/08/16 07/08/16 09:30 09:45 10:36 Temperature Pulse Rate Respiratory 18 18 16 Rate Blood Pressure (mmHg) O2 Sat by Pulse Oximetry 07/08/16 07/08/16 07/08/16 12:25 12:36 13:45 Temperature 98.5 F Pulse Rate 64 Respiratory 18 16 16 Rate Blood Pressure 117/49 (mmHg) O2 Sat by Pulse 97 Oximetry 07/08/16 07/08/16 07/08/16 15:45 17:02 17:03 Temperature 98.4 F Pulse Rate 103 Respiratory 16 16 24 Rate Blood Pressure 98/63 (mmHg) O2 Sat by Pulse 99 Oximetry 07/08/16 07/08/16 07/08/16 19:02 19:21 19:54 Temperature 98.4 F Pulse Rate 69 100 Respiratory 18 20 22 Rate Blood Pressure 119/50 (mmHg) O2 Sat by Pulse 97 98 Oximetry 07/08/16 07/08/16 07/08/16 20:02 22:34 23:46 Temperature 98.7 F Pulse Rate 98 Respiratory 18 16 17 Rate Blood Pressure 106/55 (mmHg) O2 Sat by Pulse 96 Oximetry 07/09/16 07/09/16 07/09/16 00:34 03:06 03:27 Temperature 98.1 F Pulse Rate 62 94 Respiratory 16 18 20 Rate Blood Pressure 105/47 (mmHg) O2 Sat by Pulse 94 98 Oximetry 07/09/16 07/09/16 07/09/16 04:01 06:01 08:01 Temperature 97.8 F Pulse Rate 94 Respiratory 18 16 18 Rate Blood Pressure 113/60 (mmHg) O2 Sat by Pulse 94 Oximetry 07/09/16 07/09/16 08:41 08:45 Temperature Pulse Rate Respiratory 16 16 Rate Blood Pressure (mmHg) O2 Sat by Pulse 94 Oximetry Oxygen Devices in Use Now: None Appearance: Female patient, OOB to chair, in NAD Eyes: PERRLA Ears/Nose/Mouth/Throat: Clear Oropharnyx, Mucous Membranes Moist Neck: NL Appearance and Movements; NL JVP Respiratory: Symmetrical Chest Expansion and Respiratory Effort, Clear to Auscultation Cardiovascular: NL Sounds; No Murmurs; No JVD, RRR Abdominal: NL Sounds; No Tenderness; No Distention Extremities: No Edema - Right knee dressing c/d/i, distal pulses 2+, No Clubbing , Cyanosis, - - Right knee dressing c/d/i Skin: No Rash or Ulcers Neurological: Alert and Oriented x 3 Lines/Tubes/Other Access: Clean, Dry and Intact Peripheral IV Nutrition: Taking PO's Result Diagrams: 07/09/16 06:45 07/06/16 05:40 Microbiology and Other Data: Microbiology 07/05/16 15:00 Nasal Screen MRSA (PCR)(OVI) - Final Nasal Mrsa Negative Assess/Plan/Problems-Billing Assessment: Ms. Velez is a 70 yo female with PMH significant Afib, hx DVT/PE, PEGGY, obesity, HLD, hypothyroidism, asthma, and arthritis who presented to the hospital for am elective right total knee replacement with Dr. Diaz on 07/05/16. - Patient Problems (1) Status post total right knee replacement Code(s): Z96.651 - PRESENCE OF RIGHT ARTIFICIAL KNEE JOINT Comment: POD #4. Management per Ortho. HH stable. Continue OT/PT, pain control and bowel regime. (2) Afib Code(s): I48.91 - UNSPECIFIED ATRIAL FIBRILLATION Comment: Patient went into afib last night, but pt was unaware. Asymptomatic. Now appears to be in SR again. Continue Sotalol with hold parameters. Continue Eliquis. (3) Bradycardia Code(s): R00.1 - BRADYCARDIA, UNSPECIFIED Comment: Resolved. Sotalol may contribute to lower heart rates, continue medication with hold parameters (4) History of DVT (deep vein thrombosis) Code(s): Z86.718 - PERSONAL HISTORY OF OTHER VENOUS THROMBOSIS AND EMBOLISM Comment: Hx PE and DVT Continue Eliquis (5) Hypothyroidism Code(s): E03.9 - HYPOTHYROIDISM, UNSPECIFIED Comment: TSH 2.46, continue levothyroxine. (6) Asthma Comment: Controlled, albuterol PRN. (7) PEGGY (obstructive sleep apnea) Code(s): G47.33 - OBSTRUCTIVE SLEEP APNEA (ADULT) (PEDIATRIC) Comment: Close monitoring (8) HTN (hypertension) Code(s): I10 - ESSENTIAL (PRIMARY) HYPERTENSION Comment: Normotensive, continue losartan May resume HCTZ when discharged. (9) DVT prophylaxis Code(s): FOS8122 - Comment: Eliquis (10) Full code status Code(s): Z78.9 - OTHER SPECIFIED HEALTH STATUS Status and Disposition: Inpatient. Disposition per Ortho.
--- NOTE | 2016-07-09 10:20 | PN ---
Progress Note - Progress Note SOAP: Subjective: [70 y/o female S/P RIGHT toatl knee repalcement 07/05/2016. Patient is feeling well, eager for D/C to [facility]. Pain well manaaged, having BM daily without difficulty. Denies fever, chills. ] Objective: [General- Wwell appearing, NAD, sitting in jazmin comfortably. MSK- negative homans sign b/l LE's, dorsi/plantarflexion b/l LE's equal, mild to moderate edema R LE's, sensation to light touch intact, dressing removed, incision D/C/I, no drainge noted, minimal erythema. ] Assessment: [Stable POD #4 R TKA ] Plan: [- DVT prophylaxis- Eliquis. - COntinue PT/ OT = [place] to be removed within 10 days - Folow up with Dr Diaz within 3-4 weeks or sooner with questions/ concerns. ] Vital Signs Temp 97.8 F 07/09/16 08:01 Pulse 94 07/09/16 08:01 Resp 16 07/09/16 08:45 BP 113/60 07/09/16 08:01 Pulse Ox 94 07/09/16 08:45 Intake & Output 07/08/16 07/09/16 07/09/16 18:59 06:59 18:59 Intake Total 430 650 Output Total 250 200 400 Balance 180 450 -400 Intake: Oral 430 650 Output: Urine 250 200 400 Other: Estimated Void Medium Large Estimated Stool Amount Medium # Voids 2 2 Active Medications Generic Name Dose Route Start Last Admin Trade Name Freq PRN Reason Stop Dose Admin Acetaminophen 650 mg 07/06/16 00:00 07/06/16 13:38 Tylenol Tab* PO 650 mg Q4H PRN Administration pain, fever Albuterol 2.5 mg 07/05/16 12:53 07/07/16 19:55 Ventolin 2.5 Mg/3 Ml Neb.Grace* INH 2.5 mg Q2H PRN Administration SOB/WHEEZING Apixaban 5 mg 07/07/16 09:00 07/09/16 08:42 Eliquis* PO 5 mg BID [facility] Administration Bisacodyl 10 mg 07/05/16 10:29 Dulcolax Supp* CT DAILY PRN constipation Cetirizine HCl 10 mg 07/06/16 09:00 07/09/16 08:41 Zyrtec* PO 10 mg DAILY [facility] Administration Diphenhydramine HCl 12.5 mg 07/06/16 00:00 Benadryl Iv* IV Q6H PRN PRURITIS Docusate Sodium 100 mg 07/05/16 21:00 07/09/16 08:40 Colace Cap* PO 100 mg BID [facility] Administration Lactulose 30 ml 07/05/16 10:29 Lactulose* PO Q6H PRN constipation Levothyroxine Sodium 100 mcg 07/06/16 06:00 07/09/16 06:03 Synthroid Tab* PO 100 mcg DAILY@0600 [facility] Administration Levothyroxine Sodium 75 mcg 07/06/16 06:00 07/09/16 06:03 Synthroid Tab* PO 75 mcg DAILY@0600 [facility] Administration Losartan Potassium 100 mg 07/08/16 09:00 07/09/16 08:41 Cozaar Tab* PO 100 mg DAILY [facility] Administration Magnesium Hydroxide 30 ml 07/08/16 09:33 Milk Of Magnesia Liq* PO 07/09/16 20:59 .SEE COMMENT PRN NOT SPECIFIED Morphine Sulfate 5 mg 07/06/16 00:00 07/06/16 22:58 Morphine Inj (Syringe)* IV 5 mg Q2H PRN Administration PAIN - BREAKTHROUGH Multivitamins 1 tab 07/06/16 09:00 07/09/16 08:41 Theragran Tab* PO 1 tab DAILY [facility] Administration Ondansetron HCl 4 mg 07/06/16 00:00 Zofran Inj* IV Q6H PRN nausea Ondansetron HCl 4 mg 07/06/16 00:00 Zofran Tab* PO Q6H PRN NAUSEA Oxycodone HCl 10 mg 07/06/16 00:00 07/06/16 22:55 Roxycodone Tab* PO 10 mg Q4H PRN Administration PAIN - SEVERE Oxycodone/Acetaminophen 2 tab 07/08/16 10:26 Percocet 5/325 Tab* PO Q3H PRN PAIN - MODERATE Oxycodone/Acetaminophen 1 tab 07/08/16 10:26 07/09/16 08:41 Percocet 5/325 Tab* PO 1 tab Q3H PRN Administration PAIN - MILD Polyethylene Glycol/Electrolytes 17 gm 07/05/16 10:29 Miralax* PO DAILY PRN Constipation Potassium Chloride 10 meq 07/06/16 09:00 07/09/16 08:40 Klor Con Er Tab* PO 10 meq QAM [facility] Administration Sotalol HCl 80 mg 07/06/16 21:00 07/09/16 08:41 Betapace Tab* PO 80 mg BID [facility] Administration Laboratory Results - last 24 hr 07/09/16 06:45 Hgb 9.1 L Hct 27 L
--- NOTE | 2016-07-11 02:40 | DS ---
DISCHARGE SUMMARY: DATE OF ADMISSION: 07/05/16 DATE OF DISCHARGE: 07/09/16 CHIEF COMPLAINT: 1. Right knee end-stage osteoarthritis. 2. Hypertension. 3. Episodic atrial fibrillation. 4. Obesity. 5. Hypothyroidism. 6. Asthma. 7. Environmental allergies. 8. Sleep disordered breathing, on CPAP. 9. Generalized osteoarthritis. DISCHARGE DIAGNOSES: 1. Status post right total knee arthroplasty. 2. Hypertension. 3. Episodic atrial fibrillation. 4. Morbid obesity. 5. Hypothyroidism. 6. Asthma. 7. Environmental allergies. 8. Sleep disordered breathing, on CPAP. 9. Generalized osteoarthritis. PROCEDURE: Right total knee arthroplasty. CONSULTATIONS: 1. Physical Therapy. 2. Occupational Therapy. 3. Medicine. BRIEF HISTORY: The patient is a very pleasant 70-year-old female with severe end- stage degenerative osteoarthritis of the right knee who failed conservative treatment and elected to undergo a right total knee arthroplasty on 07/05/[address] Diaz. HOSPITAL COURSE: Mrs. Velez was admitted to [facility] on 07/05/16 where she underwent a right total knee arthroplasty postoperatively. She recovered initially in the ICU unit, later to be transferred to the surgical stay unit. On postoperative day #1, the patient was treated with heparin due to a past history of pulmonary embolism following her left total knee surgery. She was advanced on a regular diet without difficulty and her pain was controlled with p.o. Percocet and she was restarted on her home medications. Her vital signs remained stable throughout her stay with intermittent episodes of atrial fibrillation on cardiac monitoring. She worked well with physical therapy and occupational therapy. Her [place] was removed on postoperative day # 2 and she was voiding on her own without difficulty. The patient was having bowel motions without difficulty. At discharge, the patient's DVT prophylaxis was managed with heparin while she was an inpatient and she was transitioned to her at-home medication of Eliquis. By postoperative day #4, she was orthopedically and medically stable to be discharged to go home to [facility]. PHYSICAL EXAMINATION: General: Well appearing, in no acute distress. Alert and oriented, sitting up in chair comfortably. On the date of discharge, Vital Signs: Temp 97.8, heart rate 94, respirations 18, oxygen saturation 94% on room air, and blood pressure was 113/60. Examination of the right lower extremity shows no drainage noted on the dressing. The incision was benign without erythema, drainage, or clinical signs of infection. Sterile dry gauze was applied and covered with an Mic. The patient had active ankle dorsiflexion and plantar flexion bilaterally. 2+ palpable posterior tibial pulses bilaterally and sensation to light touch was intact. The patient had moderate nonpitting edema noted in the right lower extremity with a negative Homans sign bilaterally. LABORATORY DATA: H and H of 9.1 and 27. Radiographs: Postoperative films obtained 07/05/16 show proper alignment and placement of right knee arthroplasty. DISCHARGE MEDICATIONS: 1. Colace 100 mg p.o. b.i.d. 2. Oxycodone/acetaminophen 5/325 one to two tablets every 4 hours as needed for pain p.r.n. 3. Eliquis 5 mg one tablet b.i.d. 4. Biotin 10,000 mcg p.o. daily. 5. Calcium and vitamin D tablets one tablet p.o. q.h.s. 6. Vitamin B12 at 1000 mcg p.o. daily. 7. Diphenhydramine 25 mg p.o. q.h.s. p.r.n. 8. Flovent 1 puff p.o. b.i.d. 9. Levothyroxine 75 mcg p.o. daily. 10. Levocetirizine dihydrochloride 5 mg p.o. daily. 11. Levoxyl 175 mcg p.o. q.a.m. 12. Hyzaar 10/12.5 one tablet p.o. daily. 13. Miconazole one application topically daily. 14. Potassium chloride 10 mEq p.o. q.a.m. 15. Sotalol 80 mg p.o. b.i.d. CONDITION ON DISCHARGE: Stable. DISCHARGE INSTRUCTIONS: Mrs. Velez is a very pleasant 70-year-old female status post right total knee arthroplasty, postoperative day #3. She is orthopedically and medically stable for discharge to [facility]. Her labs and vital signs remained stable. She was restarted on home medications. For DVT prophylaxis, she was restarted on her home dose of Eliquis. She will remain weightbearing as tolerated on the right lower extremity. She will have physical therapy work with her approximately twice a week. She will take Percocet as needed for pain control and was educated to take Colace to prevent constipation and have a bowel motion every 2 days. She will follow up with Dr. Diaz in approximately 3 to 4 weeks and will have her tyron removed by her visiting home nurse. She was instructed to go to the ER should she develop chest pain or shortness of breath. Should she develop fever, increasing pain, redness around the incision site or drainage, she is to call the office immediately. IVAN JACK [id number]/[facility] #: [id number] MTDD
== END 2016-07-09 11:25 | DRG 470 ==
LOC: AA 07-05 06:07 → ICU 07-05 14:17 → SSU 07-06 13:29
PROVIDERS: ADMIT Orthopaedic Surgery; ATTEND Orthopaedic Surgery
PROC: 0SRC0JA Replacement of Right Knee Joint with Synthetic Substitute, Uncemented, Open Approach (ICD-10-PCS; principal; 2016-07-05 07:30)
DX: M17.11 Unilateral primary osteoarthritis, right knee (principal); R00.1 Bradycardia, unspecified; Z68.43 Body mass index [BMI] 50.0-59.9, adult; I48.91 Unspecified atrial fibrillation; I10 Essential (primary) hypertension; E03.9 Hypothyroidism, unspecified; I44.0 Atrioventricular block, first degree; J45.909 Unspecified asthma, uncomplicated; G47.33 Obstructive sleep apnea (adult) (pediatric); E66.01 Morbid (severe) obesity due to excess calories; Z96.652 Presence of left artificial knee joint; Z86.711 Personal history of pulmonary embolism; Z86.718 Personal history of other venous thrombosis and embolism; Z79.1 Long term (current) use of non-steroidal anti-inflammatories (NSAID); Z79.01 Long term (current) use of anticoagulants; Z79.899 Other long term (current) drug therapy; Z88.0 Allergy status to penicillin; Z91.048 Other nonmedicinal substance allergy status; Z80.9 Family history of malignant neoplasm, unspecified
CPT/HCPCS: 36415; 80048; 83735; 84443; 85014; 85018; 85025; 85610; 87641; 88305; 88311; 93005; 94640; 94760; 97530; A9270-GY; C1776; J1100; J1200; J1240; J1650; J2250; J2270; J2405; J2704; J3010; J3490

== ENCOUNTER 2017-10-24 09:14 | Inpatient (IN) | payer MEDICARE, OTHER ==
[2017-10-24] MEDS ORDERED: Dofetilide CAP* 500 MCG PO SCH ×2 (10:00→16:00)
[2017-10-24 10:14] LABS: Hematocrit 42 % (35-47); Hemoglobin 13.8 g/dl (12.0-16.0); Mean Corpuscular HGB Conc 33 g/dl (31-36); Mean Corpuscular Hemoglobin 29 pg (27-31); Mean Corpuscular Volume 89 fL (80-97); Mean Platelet Volume 9.3 um3 (7.4-10.4); Platelet Count 148 10^3/ul (150-450); Red Blood Count 4.71 10^6/ul (4.0-5.4); Red Cell Distribution Width 15 % (10.5-15); White Blood Count 8.1 10^3/ul (3.5-10.8)
[2017-10-24 10:42] LABS: EGFR Non-African American 61.2 (>60)
[2017-10-24] MEDS ORDERED: Apixaban* 5 MG TAB PO SCH (21:00)
[2017-10-24] MEDS: Docusate CAP* 100 MG PO SCH (21:27)
[2017-10-24] MEDS: Apixaban* 5 MG TAB PO SCH (21:27)
[2017-10-25] MEDS: Levothyroxine TAB* 75 MCG TAB PO SCH (05:09)
[2017-10-25] MEDS ORDERED: Dofetilide CAP* 500 MCG PO SCH (06:00)
[2017-10-25 08:50] LABS: EGFR Non-African American 65.4 (>60)
[2017-10-25] MEDS: Potassium Chlor TAB* 10 MEQ TAB.ER PO SCH (09:15)
[2017-10-25] MEDS: Dofetilide CAP* 500 MCG PO SCH ×2 (09:15→20:15)
[2017-10-25] MEDS: Losartan TAB* 25 MG PO SCH (09:15)
[2017-10-25] MEDS: Apixaban* 5 MG TAB PO SCH ×2 (09:15→20:15)
[2017-10-25] MEDS: Cetirizine* 10 MG TAB PO SCH (09:16)
[2017-10-25] MEDS: Docusate CAP* 100 MG PO SCH ×2 (09:16→20:15)
[2017-10-26] MEDS: Levothyroxine TAB* 75 MCG TAB PO SCH (06:08)
[2017-10-26] MEDS ORDERED: Dofetilide CAP* 500 MCG PO SCH (09:00)
[2017-10-26] MEDS: Cetirizine* 10 MG TAB PO SCH (09:03)
[2017-10-26] MEDS: Apixaban* 5 MG TAB PO SCH (09:03)
[2017-10-26] MEDS: Docusate CAP* 100 MG PO SCH (09:03)
[2017-10-26] MEDS: Losartan TAB* 25 MG PO SCH (09:03)
[2017-10-26] MEDS: Potassium Chlor TAB* 10 MEQ TAB.ER PO SCH (09:03)
[2017-10-26 10:25] LABS: EGFR Non-African American 74.4 (>60)
[2017-10-26 17:09] VITALS: BP 122/79
--- NOTE | 2017-10-31 10:50 | DS ---
CC: Dr. Adelaida Jett * DISCHARGE SUMMARY: DATE OF ADMISSION: 10/24/17 DATE OF DISCHARGE: 10/26/17 HISTORY OF PRESENT ILLNESS AND HOSPITAL COURSE: Daisy Velez is a 72-year-old woman with a long history of paroxysmal atrial fibrillation. She was admitted for Tikosyn loading. The patient had been weaned off on Multaq prior to admission. Tikosyn was initiated and serial EKGs looking at QT intervals and labs were followed carefully. On the day of discharge, the patient was feeling well. She had no complaints. She had chemically cardioverted from atrial fibrillation to sinus rhythm on Tikosyn. She stated she feels much better on the Tikosyn than she did on Multaq. ALLERGIES: The patient has allergies to PENICILLIN and TALCUM POWDER. PAST MEDICAL HISTORY: 1. The patient has a past medical history of paroxysmal atrial fibrillation, initial diagnosis in the setting of DVT and PE. 2. DVT. 3. PE. 4. Hypertension. 5. Obstructive sleep apnea (intolerant of CPAP). 6. Obesity. 7. Hypothyroid disease. 8. Osteoarthritis. 9. Exertional asthma. 10. Degenerative arthritis of the spine. PAST SURGICAL HISTORY: Includes: 1. Left knee surgery. 2. Appendectomy. 3. Bilateral knee arthroplasty. 4. Appendectomy in 1978. SOCIAL HISTORY: The patient never smoked; rare alcohol intake. A retired real estate transaction coordinator, she writes, exercises on water aerobics 3 to 4 times a week. FAMILY HISTORY: Negative for coronary artery disease. Mother at age 80 of pancreatic cancer. Father of old age. HOSPITAL COURSE: As above, the patient was admitted, Tikosyn initiated. EKGs followed. She was discharged on Tikosyn. PHYSICAL EXAMINATION: On exam, the patient is 5 feet 6 inches, weighs 318 pounds with a BMI of 51. Vitals: On the day of discharge, blood pressure 122/ 79, pulse was 80 and regular, respiratory rate 97, oxygen saturation 94%. Daisy is an overweight older woman. She was seated, in no acute distress, smiling. Psychologically, pleasant and cooperative. Neurologically, awake, alert, and oriented to person, place, and time. Cranial nerves II through XII intact. Grossly normal sensory and motor function in the upper and lower extremities and normal gait. Skin: Age appropriate changes, warm, dry. No cyanosis or rashes. HEENT: Pupils are equal and round. Mucous membranes moist. Neck thick from obesity but no appreciable thyromegaly, lymphadenopathy, or increased JVP. Breath sounds were distant but clear. No wheezes, rales, or rhonchi. Coronary: S1, S2, regular without murmurs or rubs. Abdomen: Overweight, nontender. Active bowel sounds. Lower extremities were free of edema. LABORATORY DATA: From 10/24/17, white count 8.8, hemoglobin 13.8, and platelets 148. From 10/26/17, sodium 140, potassium 3.9, chloride 107, bicarb 30, BUN 15, creatinine 0.76, glucose 129, magnesium 2.1. MEDICATIONS AT THE TIME OF DISCHARGE: Included: 1. Dofetilide 500 mcg b.i.d. 2. Eliquis 5 mg b.i.d. 3. Biotin 10 mg tablet a day. 4. Calcium carbonate and vitamin D 500/125 one tablet daily. 5. B12 1000 units daily. 6. Diphenhydramine 25 mg q.h.s. 7. Colace 100 mg b.i.d. 8. Flovent one puff b.i.d. 9. Levocetirizine 5 mg a day. 10. Levoxyl 175 mcg q.a.m. 11. Losartan/hydrochlorothiazide 100/12.5 one tablet daily. 12. Miconazole powder. 13. Potassium chloride 20 mEq a day. The patient's ECG and monitor strips on the day of discharge showed sinus rhythm alternating with AFib/flutter. EKG done 10/26/17 at 1656 showed atypical flutter with a ventricular rate of 103 beats per minute, QRS axis -30 with normal interventricular conduction times, R prime, V1 and a corrected QT interval of 487 milliseconds. EKG from 10/25/17, 7:00 in the morning, shows normal sinus rhythm, 64 beats per minute, QRS axis +15, normal AV and IV conduction times and a corrected QT interval of 475 milliseconds. The patient will follow up with Dr. Jimenez 3 to 5 weeks post discharge. [id number]/[facility] #: [id number] [facility]
== END 2017-10-26 17:17 | disposition home or self-care (01) | DRG 309 ==
LOC: MEDTELE 09:14
PROVIDERS: ADMIT Specialist; ATTEND Specialist
DX: I48.0 Paroxysmal atrial fibrillation (principal); M19.90 Unspecified osteoarthritis, unspecified site; E78.00 Pure hypercholesterolemia, unspecified; I10 Essential (primary) hypertension; G47.33 Obstructive sleep apnea (adult) (pediatric); E66.9 Obesity, unspecified; B37.9 Candidiasis, unspecified; M48.00 Spinal stenosis, site unspecified; J45.909 Unspecified asthma, uncomplicated; E03.9 Hypothyroidism, unspecified; I08.1 Rheumatic disorders of both mitral and tricuspid valves; R53.83 Other fatigue; Z88.0 Allergy status to penicillin; Z68.43 Body mass index [BMI] 50.0-59.9, adult; Z90.89 Acquired absence of other organs; Z72.89 Other problems related to lifestyle; Z86.718 Personal history of other venous thrombosis and embolism; Z86.711 Personal history of pulmonary embolism; Z91.048 Other nonmedicinal substance allergy status
CPT/HCPCS: 36415; 80048; 83735; 85027; 93005; A9270-GY

== ENCOUNTER 2020-12-26 13:50 | Observation (INO) ==
[2020-12-26] MEDS ORDERED: diPHENhydraMINE 25 mg TAB PO PRN (19:30)
[2020-12-26 22:22] LABS: ABS Basophils 0.1 10^3/ul (0-0.2); ABS Eosinophils 0.2 10^3/ul (0-0.6); ABS Lymphocytes 2.7 10^3/ul (1.0-4.8); ABS Monocytes 0.6 10^3/ul (0-0.8); ABS Neutrophils 5.6 10^3/ul (1.5-7.7); Eosinophil % 2.2 %; Hematocrit 43 % (35-47); Hemoglobin 14.1 g/dL (12.0-16.0); Lymphocyte % 29.2 %; Mean Corpuscular HGB Conc 33 g/dL (31-36); Mean Corpuscular Hemoglobin 29 pg (27-31); Mean Corpuscular Volume 89 fL (80-97); Mean Platelet Volume 8.9 fL (7.4-10.4); Nucleated Red Blood Cells % 0.1; Platelet Count 148 10^3/uL (150-450); Red Cell Distribution Width 16 % (10-15); White Blood Count 9.1 10^3/uL (3.5-10.8)
[2020-12-26 22:36] LABS: Albumin 3.7 g/dL (3.2-5.2); Albumin/Globulin Ratio 1.2 (1-3); EGFR African American 78.5 (>60); EGFR Non-African American 64.9 (>60); Globulin 3.1 g/dL (2-4); Potassium 3.8 mmol/L (3.5-5.0); Total Bilirubin 0.6 mg/dL (0.2-1.0); Total Protein 6.8 g/dL (6.4-8.9)
[2020-12-27] MEDS: Potassium Chlor 20 meq TAB.ER PO SCH ×2 (00:09→09:34)
[2020-12-27 11:57] VITALS: BP 138/62
== END 2020-12-27 15:30 | disposition home or self-care (01) ==
LOC: SSU 13:50 → ED 13:50 → SSU 21:58 → MEDTELE 23:32
PROVIDERS: ADMIT Internal Medicine; ATTEND Internal Medicine